=== PATIENT | female | born 1955 | race Caucasian/White ===

== ENCOUNTER → 2016-06-21 | Outpatient (CLI) | payer MEDICARE ==
[~2016-06-21] MED LIST: ASPIRIN 32325 MG/TA1 PO; CIPRO 250MG TA250 MG PO; HCTZ 25MG TAB25 MG PO; LIPITOR20 MG PO; LOVENOX 4040 MG/0.4 SQ; NORCO 325 MG-51 TAB PO; PAMELOR50 MG PO; PLAVIX 75MG TAB75 MG PO; PREDNISONE10 MG PO; WELLBUTRIN SR100 M1 PO
== END ==
LOC: SUN.DIA 09:13
DX: E11.65 Type 2 diabetes mellitus with hyperglycemia (principal); Z68.38 Body mass index [BMI] 38.0-38.9, adult; Z71.3 Dietary counseling and surveillance; I10 Essential (primary) hypertension
CPT/HCPCS: G0108

== ENCOUNTER → 2016-07-08 | Outpatient (CLI) | payer MEDICARE | LOC: SUN.DIA 07-01 08:18 | DX: E11.65 Type 2 diabetes mellitus with hyperglycemia (principal); Z71.3 Dietary counseling and surveillance; I10 Essential (primary) hypertension | CPT/HCPCS: G0109 ==

== ENCOUNTER → 2016-07-15 | Outpatient (CLI) | payer MEDICARE | LOC: SUN.DIA 09:00 | DX: E11.65 Type 2 diabetes mellitus with hyperglycemia (principal); E66.9 Obesity, unspecified; Z71.3 Dietary counseling and surveillance; I10 Essential (primary) hypertension | CPT/HCPCS: G0109 ==

== ENCOUNTER → 2016-07-20 | Outpatient (CLI) | payer MEDICARE | LOC: SUN.DIA 12:32 | DX: E11.65 Type 2 diabetes mellitus with hyperglycemia (principal); E66.9 Obesity, unspecified; Z68.38 Body mass index [BMI] 38.0-38.9, adult; Z71.3 Dietary counseling and surveillance; I10 Essential (primary) hypertension ==

== ENCOUNTER → 2016-07-22 | Outpatient (CLI) | payer MEDICARE | LOC: SUN.DIA 09:00 | DX: E11.9 Type 2 diabetes mellitus without complications (principal); E66.9 Obesity, unspecified; Z71.3 Dietary counseling and surveillance; I10 Essential (primary) hypertension | CPT/HCPCS: G0109 ==

== ENCOUNTER → 2016-09-01 | Outpatient (CLI) | payer MEDICARE | LOC: SUN.DIA 10:31 | DX: E11.65 Type 2 diabetes mellitus with hyperglycemia (principal); E66.9 Obesity, unspecified; Z68.37 Body mass index [BMI] 37.0-37.9, adult; Z71.3 Dietary counseling and surveillance; I10 Essential (primary) hypertension ==

== ENCOUNTER → 2017-06-06 | Outpatient (REF) ==
[~2017-06-06] MED LIST changes: +CEPHALEXIN250 M1 PO; +CYMBALTA 60MG60 MG PO; +MACRODANTIN50 MG/CA1 PO; +MASON NATURAL2000 IU; +MYRBETR50MG PO; +NEURONTIN100 MG/CAP PO; +OSCAL 500 TAB500 MG PO; +ZYLOPRIM 100MG100 MG PO
== END ==
LOC: ZLAB.WCH 17:57
DX: Z01.89 Encounter for other specified special examinations (principal)

== ENCOUNTER → 2017-06-28 | Outpatient (CLI) | payer MEDICARE ==
[~2017-06-28] MED LIST changes: +FREESTYLE PREC1 EAC5 MC; +GLUCOPHAGE500 MG/TAB PO; +GLUCOSE TEST ST1 DEV MC; +LEVEMIR FLEX100 U/ML SQ
== END ==
LOC: SUN.DIA 08:56
DX: E11.9 Type 2 diabetes mellitus without complications (principal); Z79.4 Long term (current) use of insulin; I10 Essential (primary) hypertension; E66.9 Obesity, unspecified; Z68.38 Body mass index [BMI] 38.0-38.9, adult; Z71.3 Dietary counseling and surveillance
CPT/HCPCS: G0108

== ENCOUNTER → 2017-07-14 | Outpatient (CLI) | payer MEDICARE | LOC: SUN.DIA | DX: E11.9 Type 2 diabetes mellitus without complications (principal); Z79.4 Long term (current) use of insulin; I10 Essential (primary) hypertension; E66.9 Obesity, unspecified; Z68.38 Body mass index [BMI] 38.0-38.9, adult; Z71.3 Dietary counseling and surveillance ==

== ENCOUNTER → 2017-10-14 | Outpatient (CLI) | payer MEDICARE | LOC: COL.RAD 13:21 | DX: R91.8 Other nonspecific abnormal finding of lung field (principal); R51 Headache; H53.9 Unspecified visual disturbance; Z91.81 History of falling; R93.0 Abnormal findings on diagnostic imaging of skull and head, not elsewhere classified; I77.810 Thoracic aortic ectasia | CPT/HCPCS: Q9967 ==

== ENCOUNTER → 2017-11-15 | Outpatient (CLI) | payer MEDICARE | LOC: SUN.DIA 11-02 13:44 | DX: E11.9 Type 2 diabetes mellitus without complications (principal); I10 Essential (primary) hypertension; E66.9 Obesity, unspecified ==

== ENCOUNTER → 2018-01-17 | Outpatient (CLI) | payer MEDICARE, OTHER | LOC: COL.RAD 08:00 | DX: I77.810 Thoracic aortic ectasia (principal); R93.89 Abnormal findings on diagnostic imaging of other specified body structures | CPT/HCPCS: Q9967 ==

== ENCOUNTER → 2018-02-14 | Outpatient (CLI) | payer MEDICARE, OTHER | LOC: SUN.DIA 13:22 | DX: E11.9 Type 2 diabetes mellitus without complications (principal); I10 Essential (primary) hypertension; E66.9 Obesity, unspecified | CPT/HCPCS: G0270 ==

== ENCOUNTER → 2018-06-22 | Outpatient (CLI) | payer MEDICARE, OTHER | LOC: SUN.DIA 06-13 15:22 | DX: E11.9 Type 2 diabetes mellitus without complications (principal); I10 Essential (primary) hypertension; E66.9 Obesity, unspecified; Z79.4 Long term (current) use of insulin | CPT/HCPCS: G0270 ==

== ENCOUNTER → 2018-10-24 | Outpatient (CLI) | payer MEDICARE | LOC: DIA.ED 13:50 | DX: E11.9 Type 2 diabetes mellitus without complications (principal); I10 Essential (primary) hypertension; E66.9 Obesity, unspecified; Z79.4 Long term (current) use of insulin | CPT/HCPCS: G0108 ==

== ENCOUNTER → 2019-03-02 | Outpatient (CLI) | payer MEDICARE | LOC: COL.RAD 12:34 | DX: N30.21 Other chronic cystitis with hematuria (principal) ==

== ENCOUNTER 2019-07-23 16:41 | Emergency (ER) | payer MEDICARE ==
[~2019-07-23] VITALS: Ht 167.6 cm; Wt 101.8 kg
[2019-07-23 16:46] VITALS: BP 135/83
[2019-07-23] MEDS ORDERED: PRINIVIL20 MG PO (16:51)
[2019-07-23] MEDS ORDERED: ATARAX 25MG25 MG/TAB PO (16:51)
[2019-07-23 17:04] LABS: COLLECTION METHOD CLEAN CATCH
[2019-07-23 17:19] LABS: PH 5 (5-8); SQUAMOUS EPITHELIAL 0-2 /hpf; URINE APPEARANCE Clear; URINE BACTERIA None Seen /hpf; URINE BILIRUBIN Negative (NEGATIVE); URINE BLOOD Negative (NEGATIVE); URINE COLOR Yellow; URINE GLUCOSE Negative (NEGATIVE); URINE KETONE Negative (NEGATIVE); URINE LEUKOCYTE ESTERASE 2+ (NEGATIVE); URINE NITRATE Negative (NEGATIVE); URINE PROTEIN(semi-quant) Negative (NEGATIVE); URINE RBC 0-2 /hpf; URINE UROBILINOGEN Negative (NEGATIVE)
[2019-07-23] MEDS ORDERED: CEFTIN 250250 MG/TAB PO (17:40)
[2019-07-23 17:47] VITALS: PULSE 90; TEMP 98.3
== END 2019-07-23 17:47 | disposition home or self-care (01) ==
LOC: COL.ER 16:41
PROVIDERS: Family Medicine
DX: N39.0 Urinary tract infection, site not specified (principal); E11.9 Type 2 diabetes mellitus without complications; I10 Essential (primary) hypertension; Z79.02 Long term (current) use of antithrombotics/antiplatelets; Z79.4 Long term (current) use of insulin

== ENCOUNTER → 2020-07-09 | Outpatient (CLI) | payer MEDICARE ==
[~2020-07-09] MED LIST changes: +ATARAX 25MG25 MG/TAB PO; +CEFTIN 250250 MG/TAB PO; +PRINIVIL20 MG PO
== END ==
LOC: DIA.ED 13:24
DX: E11.9 Type 2 diabetes mellitus without complications (principal); Z79.4 Long term (current) use of insulin; I10 Essential (primary) hypertension
CPT/HCPCS: G0108

== ENCOUNTER → 2020-08-20 | Outpatient (CLI) | payer MEDICARE | LOC: DIA.ED 07-23 16:09 | DX: E11.9 Type 2 diabetes mellitus without complications (principal); Z79.4 Long term (current) use of insulin; I10 Essential (primary) hypertension | CPT/HCPCS: G0270 ==

== ENCOUNTER → 2020-11-19 | Outpatient (CLI) | payer MEDICARE | LOC: DIA.ED 10:25 | DX: E11.9 Type 2 diabetes mellitus without complications (principal); Z79.4 Long term (current) use of insulin; I10 Essential (primary) hypertension | CPT/HCPCS: G0270 ==

== ENCOUNTER → 2021-04-09 | Outpatient (CLI) | payer MEDICARE | LOC: DIA.ED 03-25 08:56 | DX: E11.65 Type 2 diabetes mellitus with hyperglycemia (principal); Z79.4 Long term (current) use of insulin; I10 Essential (primary) hypertension | CPT/HCPCS: G0270 ==

== ENCOUNTER → 2021-05-28 | Outpatient (CLI) | payer MEDICARE | LOC: COL.VAS 13:43 | DX: I51.7 Cardiomegaly (principal); I36.1 Nonrheumatic tricuspid (valve) insufficiency ==

== ENCOUNTER → 2021-06-04 | Outpatient (CLI) | payer MEDICARE ==
[2021-06-04 08:03] LABS: ARTERIAL BLOOD GAS BASE EXCESS -4.6 (-2-2); ARTERIAL BLOOD GAS HCO3 20.6 meq/L (22-26); ARTERIAL BLOOD GAS PCO2 38.5 mmHg (35-45); ARTERIAL BLOOD GAS PO2 85.6 mmHg (80-100); ARTERIAL BLOOD GAS pH 7.35 (7.35-7.45)
[2021-06-04 08:04] LABS: ARTERIAL BLD GAS O2 SATURATION 96.5 % (92-100)
== END ==
LOC: COL.PUL 07:46
PROVIDERS: Internal Medicine Pulmonary Disease
DX: R06.02 Shortness of breath (principal)

== ENCOUNTER 2021-08-06 17:00 | Emergency (ER) | payer MEDICARE ==
[~2021-08-06] VITALS: Ht 170.2 cm; Wt 100.0 kg
[2021-08-06 17:06] VITALS: TEMP 97.7
[2021-08-06] MEDS ORDERED: TYLENOL 500MG500 MG PO (17:24)
[2021-08-06] MEDS ORDERED: ZYRTEC 10MG10 MG PO (17:25)
[2021-08-06] MEDS ORDERED: VITAMIN D31000 IU PO (17:26)
[2021-08-06] MEDS ORDERED: GLUCOPHAGE500 MG/TAB PO (17:28)
[2021-08-06] MEDS ORDERED: FERROUS SU325 MG/TAB PO (17:29)
[2021-08-06] MEDS ORDERED: CIPRO 500MG TA500 MG PO (17:30)
[2021-08-06 17:37] LABS: ALANINE AMINOTRANSFERASE 31 U/L (0-55); ALKALINE PHOSPHATASE 121 U/L (40-150); ANION GAP 13 mmol/L (7-16); AST,SGOT 16 U/L (5-34); BILIRUBIN,TOTAL 0.3 mg/dL (0.2-1.2); BLOOD UREA NITROGEN 35 mg/dL (10-20); CARBON DIOXIDE 21 mmol/L (23-31); CHLORIDE 105 mmol/L (98-107); CREATININE, serum 1.37 mg/dL (0.57-1.11); GLUCOSE 150 mg/dL (70-99); POTASSIUM 4.3 mmol/L (3.5-4.5); SODIUM 139 mmol/L (136-145); TOTAL PROTEIN 6.8 gm/dL (6.2-8.1)
[2021-08-06 17:41] LABS: BASO # 0.1 K/mm3 (0.0-0.2); BASO % 1.4 % (0.0-2.0); EOS # 0.1 K/mm3 (0.0-0.7); EOS % 1.6 % (0.0-4.0); GRAN # 4.5 K/mm3 (1.4-6.5); GRAN % 62.9 % (42.2-75.2); HEMATOCRIT 38.1 % (37.0-47.0); HEMOGLOBIN 12.7 g/dl (12.5-16.0); LYMPH # 1.8 K/mm3 (1.2-3.4); MEAN CELL VOLUME 95 fl (80.0-100.0); MEAN CORPUSCULAR HEMOGLOBIN 32 pg (27-31); MEAN CORPUSCULAR HGB CONC 33 g/dl (33.0-37.0); MEAN PLATELET VOLUME 9.5 fl (7.4-10.4); MONO # 0.6 K/mm3 (0.1-0.6); MONO % 8.5 % (1.7-9.3); PLATELET COUNT 214 K/mm3 (130-400); RED BLOOD COUNT 4.01 M/mm3 (4.10-5.30); REDCELL DISTRIBUTION WIDTH-CV 13.9 % (11.5-14.5)
[2021-08-06 17:46] LABS: TROPONIN-I < 0.010 ng/mL (0.00-0.033)
[2021-08-06 17:50] LABS: PARTIAL THROMBOPLASTIN TIME 33.8 SECONDS (26.0-37.0)
[2021-08-06 17:53] LABS: D-DIMER < 200.00 ng/mLDDu (200-230)
[2021-08-06 18:49] LABS: COLLECTION METHOD CLEAN CATCH
[2021-08-06 18:56] LABS: MUCOUS Present (NOT PRESENT); PH 5 (5-8); SQUAMOUS EPITHELIAL 0-2 /hpf (0-10); URINE APPEARANCE Clear (CLEAR/HAZY); URINE BACTERIA Rare /hpf (NONE SEEN); URINE BILIRUBIN Negative (NEGATIVE); URINE BLOOD Negative (NEGATIVE); URINE COLOR Yellow (YELLOW); URINE GLUCOSE Negative (NEGATIVE); URINE KETONE Negative (NEGATIVE); URINE LEUKOCYTE ESTERASE Negative (NEGATIVE); URINE NITRATE Negative (NEGATIVE); URINE PROTEIN(semi-quant) Negative (NEGATIVE); URINE RBC 0-2 /hpf (0-2); URINE UROBILINOGEN Negative (NEGATIVE)
[2021-08-06 20:30] VITALS: BP 123/63; PULSE 89
== END 2021-08-06 20:42 | disposition home or self-care (01) ==
LOC: COL.ER 17:00
PROVIDERS: Emergency Medicine
DX: R06.02 Shortness of breath (principal); R00.0 Tachycardia, unspecified; N17.9 Acute kidney failure, unspecified; Z86.79 Personal history of other diseases of the circulatory system; Z20.822 Contact with and (suspected) exposure to COVID-19; Z79.02 Long term (current) use of antithrombotics/antiplatelets; Z28.310 Unvaccinated for COVID-19
CPT/HCPCS: J7040

== ENCOUNTER → 2021-09-25 | Outpatient (CLI) | payer MEDICARE ==
[~2021-09-25] MED LIST changes: +CIPRO 500MG TA500 MG PO; +FERROUS SU325 MG/TAB PO; +TYLENOL 500MG500 MG PO; +VITAMIN D31000 IU PO; +ZYRTEC 10MG10 MG PO
== END ==
LOC: COL.RAD 09-18 11:30
DX: K76.0 Fatty (change of) liver, not elsewhere classified (principal); Z90.49 Acquired absence of other specified parts of digestive tract; Z90.710 Acquired absence of both cervix and uterus
CPT/HCPCS: Q9967

== ENCOUNTER 2021-10-06 10:29 | Day surgery (SDC) | payer MEDICARE ==
[~2021-10-06] VITALS: Ht 170.3 cm; Wt 101.0 kg
[2021-10-06] VITALS (9 sets, daily range): BP systolic 120–138; BP diastolic 79–89; PULSE 76–89; TEMP 97.9
[~2021-10-06 10:29] MED LIST changes: -PRINIVIL20 MG PO; +ZESTRIL30 MG PO
[2021-10-06] MEDS ORDERED: CYMBALTA 30MG30 MG PO (10:59)
[2021-10-06] MEDS ORDERED: SINGULAIR 110 MG/TAB PO (11:06)
[2021-10-06] MEDS ORDERED: NATURAL E400 IU PO (11:06)
[2021-10-06] MEDS ORDERED: IMODIUM 2MG CAPS2 MG PO (11:07)
[2021-10-06] MEDS ORDERED: TAGAMET200 MG PO (11:07)
[2021-10-06] MEDS ORDERED: ZETIA 10MG TAB10 MG PO (11:08)
[2021-10-06] MEDS ORDERED: FERROUS SU325 MG/TAB PO (11:08)
[2021-10-06] MEDS ORDERED: ATARAX 25MG25 MG/TAB PO (11:09)
[2021-10-06] MEDS ORDERED: LASIX 20MG TABL20 MG PO (11:09)
[2021-10-06] MEDS ORDERED: TOPROL XL 25MG25 MG PO (11:10)
[2021-10-06] MEDS ORDERED: CRANBERRY250 MG PO (11:11)
[2021-10-06 11:43] LABS: HEMATOCRIT 39.8 % (37.0-47.0); HEMOGLOBIN 13.2 g/dl (12.5-16.0); MEAN CELL VOLUME 94 fl (80.0-100.0); MEAN CORPUSCULAR HEMOGLOBIN 31 pg (27-31); MEAN CORPUSCULAR HGB CONC 33 g/dl (33.0-37.0); MEAN PLATELET VOLUME 9.7 fl (7.4-10.4); PLATELET COUNT 217 K/mm3 (130-400); RED BLOOD COUNT 4.22 M/mm3 (4.10-5.30); REDCELL DISTRIBUTION WIDTH-CV 13.2 % (11.5-14.5)
[2021-10-06 11:55] LABS: INR 0.9 (0.8-3.0); PROTHROMBIN TIME 10.8 SECONDS (9.7-12.8)
[2021-10-06 12:01] LABS: CALCIUM 9.6 mg/dL (8.4-10.2); CREATININE, serum 1.1 mg/dL (0.57-1.11); POTASSIUM 4.7 mmol/L (3.5-4.5)
--- NOTE | 2021-10-06 13:07 | NUR ---
See merge for all medication, assessment, intervention, and vital sign times.
--- NOTE | 2021-10-06 13:45 | NUR ---
pt returned to [facility] 15 via bed from laborer. pt is awake, call light in reach, has no c/o, drinks water
--- NOTE | 2021-10-06 14:30 | NUR ---
pt con't rests in bed, takes snack and meal ordered. called on update
--- NOTE | 2021-10-06 15:30 | NUR ---
here, pt watches tv, con't same, no c/o
--- NOTE | 2021-10-06 16:15 | NUR ---
reviewed discharge inst. with pt on activity level and care of site, also reviewed med list, pt will not take metformin for 48 hours due to having contrast. also has next appt, with verbal understanding.
--- NOTE | 2021-10-06 16:45 | NUR ---
pt up and walked to b/r in room, gait stable, right groin site remains clean and dry, no swelling, sits on side of bed. iv d'cd intact, and pt dressed self, discharged via w/c to car with at [id number]
== END 2021-10-06 18:00 | disposition home or self-care (01) ==
LOC: COL.CAR 10:29
PROVIDERS: Internal Medicine Cardiovascular Disease
DX: R07.89 Other chest pain (principal); R94.39 Abnormal result of other cardiovascular function study; R06.09 Other forms of dyspnea; E78.5 Hyperlipidemia, unspecified; I10 Essential (primary) hypertension; E11.42 Type 2 diabetes mellitus with diabetic polyneuropathy; Z79.4 Long term (current) use of insulin; Z86.73 Personal history of transient ischemic attack (TIA), and cerebral infarction without residual deficits; G47.33 Obstructive sleep apnea (adult) (pediatric); Z79.899 Other long term (current) drug therapy
CPT/HCPCS: C1760; C1894; J1644; J2250; J3010

== ENCOUNTER → 2021-12-07 | Outpatient (CLI) | payer MEDICARE ==
[~2021-12-07] MED LIST changes: +CRANBERRY250 MG PO; +CYMBALTA 30MG30 MG PO; +IMODIUM 2MG CAPS2 MG PO; +LASIX 20MG TABL20 MG PO; +NATURAL E400 IU PO; +SINGULAIR 110 MG/TAB PO; +TAGAMET200 MG PO; +TOPROL XL 25MG25 MG PO; +ZETIA 10MG TAB10 MG PO
== END ==
LOC: COL.RAD 10:13
DX: N26.1 Atrophy of kidney (terminal) (principal); R32 Unspecified urinary incontinence